=== PATIENT | female | born 1990 | race African-American/Black ===

== ENCOUNTER 2021-10-02 11:37 | Emergency (ER) | payer BC ==
[2021-10-02 12:34] LABS: Bilirubin Neg (Negative); Blood, Urine Negative (Negative); Clarity Clear (Clear); Glucose, Urine (Dipstick) Normal (Negative); Ketone, Urine 5 mg/dL (Negative); Leukocyte 25 (Negative); Nitrite Negative (Negative); Protein, Urine (Dipstick) 15 mg/dl (Neg-Trace); Specific Gravity, Urine 1.025 (1.002-1.036); Urobilinogen Normal mg/dL (Less than 2)
[2021-10-02 12:47] LABS: #Eosinphils 0.1 10x3/uL (0.0-0.5); #Monocytes 0.6 10x3/uL (0.0-1.1); #Neutrophils 5.6 10x3/uL (1.5-8.4); %Basophils 0.2 % (0.0-2.0); %Eosinophils 1.2 % (0.0-6.0); %Lymphocytes 24.6 % (18.0-47.0); %Monocytes 7.3 % (0.0-10.0); %Neutrophils 66.5 % (40.0-75.0); Hemoglobin 11.4 g/dL (12.0-15.5); Mean Corpuscular HGB CONC 31.4 g/dL (32.0-36.0); Mean Corpuscular Hemoglobin 27.3 pg (27.0-33.0); Mean Corpuscular Volume 86.8 fl (81.6-98.3); Platelet Count 296 10x3/uL (150-450); RBC Distribution Width 13.3 % (11.5-14.5); Red Blood Cell (RBC) Count 4.18 10x6/uL (3.90-5.03); White Blood Cell (WBC) Count 8.5 10x3/uL (3.5-10.5)
[2021-10-02 12:53] LABS: Bacteria/HPF Rare-Few HPF (None Seen); RBC/HPF None Seen HPF (0-3); Squamous Epithelial 0-3 HPF (0-3); WBC/HPF 0-3 HPF (0-3)
== END 2021-10-02 14:03 | disposition home or self-care (01) ==
LOC: CSHERS 11:37
DX: O20.0 Threatened abortion (principal); Z3A.09 9 weeks gestation of pregnancy
CPT/HCPCS: 36415; 76856; 81003; 81015; 84702; 85025; 86900; 86901; 87086; 94760

== ENCOUNTER 2022-04-16 22:07 | Day surgery (SDC) | payer BC, MEDICAID ==
[2022-04-16 22:26] VITALS: BMI 36.6
[2022-04-16] MEDS ORDERED: hydrALAZINE 20 MG/ML VIAL SLOW IVP PRN (23:06)
[2022-04-16] MEDS ORDERED: Acetaminophen 325 MG TAB PO PRN (23:18)
== END 2022-04-17 01:05 | disposition home or self-care (01) ==
LOC: CSHLD/OP 22:07
PROVIDERS: ATTEND Obstetrics & Gynecology
DX: O99.891 Other specified diseases and conditions complicating pregnancy (principal); R10.30 Lower abdominal pain, unspecified; O34.219 Maternal care for unspecified type scar from previous cesarean delivery; O24.410 Gestational diabetes mellitus in pregnancy, diet controlled; Z3A.37 37 weeks gestation of pregnancy

== ENCOUNTER 2022-04-26 10:01 | Inpatient (IN) | payer BC, OTHER ==
[2022-04-25 13:08] LABS: Hemoglobin 10.8 g/dL (12.0-15.5); Mean Corpuscular HGB CONC 31.2 g/dL (32.0-36.0); Mean Corpuscular Hemoglobin 25.9 pg (27.0-33.0); Mean Platelet Volume 11.2 fl (7.4-10.4); Platelet Count 303 10x3/uL (150-450); Red Blood Cell (RBC) Count 4.17 10x6/uL (3.90-5.03); White Blood Cell (WBC) Count 8.2 10x3/uL (3.5-10.5)
[2022-04-25 13:44] LABS: Hep B Surf Ag Non-Reactive S/CO (NonReactive); Syphilis Antibody Nonreactive (Nonreactive); Syphilis Antibody Index 0.05 S/CO (<1.00 Non-Reactive)
[~2022-04-26 10:01] MED LIST: Bicitra 30 ML UDCUP PO PRN; Famotidine/PF 20 mg/2ml Vial SLOW IVP PRN; Ondansetron PF 4 MG/2 ML Vial IVP PRN; Promethazine HCl 25 MG/ML VIAL IM PRN; hydrALAZINE 20 MG/ML VIAL SLOW IVP PRN
[2022-04-26] MEDS: Lactated Ringer's 1,000 ML IV SCH ×2 (10:30→12:26)
[2022-04-26] MEDS ORDERED: SODIUM CHLORIDE 0.9% IVPB SCH (11:15)
[2022-04-26] MEDS ORDERED: CEFAZOLIN IVPB SCH (11:15)
[2022-04-26 12:15] VITALS: BMI 36.6
[2022-04-26] MEDS ORDERED: Promethazine HCl 25 MG/ML VIAL IM PRN (12:20)
[2022-04-26] MEDS ORDERED: Meperidine HCl/PF 25 MG/ML VIAL SLOW IVP PRN (12:20)
[2022-04-26] MEDS ORDERED: diphenhydrAMINE 50 MG/ML VIAL IVP PRN (12:20)
[2022-04-26] MEDS ORDERED: Ondansetron PF 4 MG/2 ML Vial IVP PRN (12:20)
[2022-04-26] MEDS ORDERED: Naloxone HCl 0.4 mg/ml Vial IVP PRN ×2 (12:20)
[2022-04-26] MEDS ORDERED: Naloxone HCl 0.4 mg/ml Vial IV PRN (12:20)
[2022-04-26] MEDS ORDERED: Fentanyl 100 MCG/2 ML VIAL SLOW IVP PRN (12:20)
[2022-04-26] MEDS ORDERED: Moisturizing Cream (Eucerin) 113 GM JAR TOP PRN (12:20)
[2022-04-26] MEDS ORDERED: Promethazine HCl 25 MG SUPP PR PRN (12:20)
[2022-04-26] MEDS ORDERED: Ondansetron HCl/PF 4 MG/2 ML Vial IVP PRN (12:20)
[2022-04-26] MEDS ORDERED: Communication Order-Pharmacy FS SCH (12:30)
[2022-04-26] MEDS ORDERED: Morphine PF 10 MG/10 ML VIAL ONE (12:33)
[2022-04-26] MEDS ORDERED: ePHEDrine Sulfate 50 MG/10 ML VIAL ONE (12:34)
[2022-04-26] MEDS ORDERED: Ketorolac Tromethamine 30 MG/ML VIAL ONE (13:49)
[2022-04-26] MEDS ORDERED: Oxytocin 10 UNITS/ML VIAL ONE (13:49)
[2022-04-26] MEDS ORDERED: Lidocaine 2% MPF 10 ML AMP (For Epidural Use) ONE (13:49)
[2022-04-26] MEDS ORDERED: Phenylephrine 40 MG/NS 250 ML 250 ML ONE (13:49)
[2022-04-26] MEDS ORDERED: PHENYLEPHRINE-NS 100 MCG/ML 10 ML SYRINGE ONE (13:49)
[2022-04-26] MEDS ORDERED: Boostrix 0.5 ML (Tdap) VIAL IM ONE (17:03)
[2022-04-26] MEDS ORDERED: Lanolin Ointment 7 GM TUBE TOP PRN (17:03)
[2022-04-26] MEDS ORDERED: Varicella virus, LIVE 0.5 ML VIAL SC ONE (17:03)
[2022-04-26] MEDS ORDERED: hydrALAZINE 20 MG/ML VIAL SLOW IVP PRN (17:03)
[2022-04-26] MEDS ORDERED: Measles/Mumps/Rubella 10 MCG/0.5 ML VIAL SC ONE (17:03)
[2022-04-26] MEDS ORDERED: Simethicone Chewable 80 MG TAB PO PRN (17:03)
[2022-04-26] MEDS ORDERED: Ketorolac Tromethamine 30 MG/ML VIAL IVP PRN (19:25)
[2022-04-26] MEDS ORDERED: Ketorolac Tromethamine 30 MG/ML VIAL IVP SCH (22:15)
[2022-04-27 05:27] LABS: Hemoglobin 9.7 g/dL (12.0-15.5); Mean Corpuscular HGB CONC 32.4 g/dL (32.0-36.0); Mean Corpuscular Hemoglobin 26.5 pg (27.0-33.0); Mean Corpuscular Volume 81.7 fl (81.6-98.3); Mean Platelet Volume 10.7 fl (7.4-10.4); Platelet Count 240 10x3/uL (150-450); Red Blood Cell (RBC) Count 3.66 10x6/uL (3.90-5.03); White Blood Cell (WBC) Count 8.8 10x3/uL (3.5-10.5)
[2022-04-27] MEDS: Prenatal Vitamin 1 TAB PO SCH (07:34)
[2022-04-27] MEDS: Ferrous Sulfate 325 MG TAB PO SCH ×3 (07:35→21:04)
[2022-04-27] MEDS: Docusate 100 MG CAP PO SCH ×3 (07:35→21:04)
[2022-04-27] MEDS: HYDROcodone/Acetaminophen 5/325 mg Tablet PO PRN ×4 (07:36→21:04)
[2022-04-28] MEDS: HYDROcodone/Acetaminophen 5/325 mg Tablet PO PRN ×3 (04:12→13:29)
[2022-04-28] MEDS: Ibuprofen 800 MG TAB PO SCH ×3 (05:36→13:30)
[2022-04-28] MEDS: Docusate 100 MG CAP PO SCH (08:33)
[2022-04-28] MEDS: Prenatal Vitamin 1 TAB PO SCH (08:33)
[2022-04-28] MEDS: Ferrous Sulfate 325 MG TAB PO SCH (08:35)
[2022-04-28 11:35] VITALS: BP 118/72; TEMP 97.6
== END 2022-04-28 15:15 | disposition home or self-care (01) | DRG 785 ==
LOC: CSHLD 10:01 → CSHPP 16:45
PROVIDERS: ADMIT Obstetrics & Gynecology; ATTEND Obstetrics & Gynecology
PROC: 10D00Z1 Extraction of Products of Conception, Low, Open Approach (ICD-10-PCS; principal; 2022-04-26)
PROC: 0UB50ZZ Excision of Right Fallopian Tube, Open Approach (ICD-10-PCS; 2022-04-26)
PROC: 0UB90ZZ Excision of Uterus, Open Approach (ICD-10-PCS; 2022-04-26)
PROC: 0UB00ZZ Excision of Right Ovary, Open Approach (ICD-10-PCS; 2022-04-26)
DX: O34.211 Maternal care for low transverse scar from previous cesarean delivery (principal); Z20.822 Contact with and (suspected) exposure to COVID-19; Z3A.38 38 weeks gestation of pregnancy; Z37.0 Single live birth; O13.4 Gestational [pregnancy-induced] hypertension without significant proteinuria, complicating childbirth; O24.429 Gestational diabetes mellitus in childbirth, unspecified control; O34.13 Maternal care for benign tumor of corpus uteri, third trimester; D25.9 Leiomyoma of uterus, unspecified; O34.83 Maternal care for other abnormalities of pelvic organs, third trimester; N83.8 Other noninflammatory disorders of ovary, fallopian tube and broad ligament
CPT/HCPCS: 51702; 85027; 86780; 86850; 86900; 86901; 87340; 88304; 88305; 90715; J0690; J1200; J1885; J2274; J2590; J7120; S0028; U0003; U0005

== ENCOUNTER 2022-12-21 12:20 | Emergency (ER) | payer BC, OTHER | END 2022-12-21 13:54 | disposition home or self-care (01) | LOC: CSHERS 12:20 | DX: B34.9 Viral infection, unspecified (principal) | CPT/HCPCS: 99283 ==

== ENCOUNTER 2025-05-15 17:01 | Emergency (ER) | payer SELFPAY ==
[2025-05-15 18:11] LABS: Glucose, Urine (Dipstick) Normal (Negative); Leukocyte 500 (Negative); Protein, Urine (Dipstick) 30 mg/dl (Neg-Trace); Specific Gravity, Urine 1.025 (1.005-1.030)
[2025-05-15 18:25] LABS: Pregnancy Test - Urine (BHCG) Negative (Negative); Pregu Control Background? CLEAR/WHITE (CLR/WHITE); Pregu Control Bar Appear? YES (CONTROL BAR)
[2025-05-15 19:02] LABS: Bacteria/HPF 1+ HPF (None Seen); CAUTI Indications for Culture Pelvic or flank pain; WBC/HPF Greater Than 50 HPF (0-3)
[2025-05-15 19:04] LABS: Urine Culture Reflex Yes Yes
[2025-05-15] MEDS ORDERED: metroNIDAZOLE 500 MG TAB ONE (19:48)
[2025-05-15] MEDS ORDERED: cefTRIAXone (ROCEPHIN) 500 MG VIAL ONE (19:53)
[2025-05-15] MEDS ORDERED: Azithromycin 250 MG TAB ONE (19:53)
[2025-05-16 11:01] LABS: Chlamydia by PCR, Vaginal Swab Not Detected (NotDetected); GC by PCR, Vaginal Swab Not Detected (NotDetected)
== END 2025-05-15 20:03 | disposition home or self-care (01) ==
LOC: CSHERS 17:01
DX: A59.01 Trichomonal vulvovaginitis (principal); Z20.2 Contact with and (suspected) exposure to infections with a predominantly sexual mode of transmission
CPT/HCPCS: 81001; 81025; 87077; 87086; 87480; 87491; 87510; 87591; 87660; 96372; 99283; J0696